=== PATIENT | female | born 1965 | race Caucasian/White ===

== ENCOUNTER 2023-08-25 10:50 | Emergency (ER) | payer SELFPAY ==
[~2023-08-25] VITALS: Ht 165.1 cm; Wt 76.2 kg
[~2023-08-25 10:50] MED LIST: CLARITIN10 MG PO; KENALOG-4040 MG/1 ML IM
[2023-08-25] MEDS ORDERED: ASPIRIN ADULT L81 M1 PO (11:09)
[2023-08-25] MEDS ORDERED: SUDAFED 12HR120 MG PO (11:10)
[2023-08-25 11:33] LABS: BILIRUBIN 2+ (Negative); BLOOD 2+ (Negative); CLARITY Clear (Clear); GLUCOSE Negative (Negative); KETONE 1+ (Negative); LEUKO ESTERASE Trace (Negative); NITRITE Positive (Negative); PH 5.5 (4.5-8.0); SPECIFIC GRAVITY 1.025 (1.001-1.030)
[2023-08-25] MEDS ORDERED: MORPHINE Sulfate 2 MG/ML SYR IV ONE ×2 (11:35→14:00)
[2023-08-25] MEDS ORDERED: Ondansetron Hydrochloride 4 MG/2 ML VIAL IV ONE (11:35)
[2023-08-25] MEDS ORDERED: SODIUM CHLORIDE 0.9% 1,000 ML IV SCH (11:35)
[2023-08-25 11:47] LABS: BACTERIA 3+; COLOR Orange (Yellow); MUCOUS 2+; WBC 0-2 wbc/hpf (0-5)
[2023-08-25] MEDS ORDERED: IOHEXOL 300 MG/ML 100 ML VIAL IV ONE (11:50)
[2023-08-25 12:00] LABS: MEAN CELL VOLUME 89.2 fl (81.0-99.0); MEAN CORPUSCULAR HGB 30.1 pg (27.0-31.0); MEAN CORPUSCULAR HGB CONC 33.7 g/dl (33.0-37.0); MEAN PLATELET VOLUME 9.5 fl (9.6-12.3); PLATELET COUNT AUTOMATED 320 10*3/uL (130-400); RED BLOOD COUNT 4.82 10*6/uL (4.10-5.10); RED CELL DISTRI WIDTH 12.8 % (0-14.5); WHITE BLOOD COUNT 28.9 10*3/uL (4.8-10.8)
[2023-08-25 12:01] LABS: MANUAL DIFF REFLEX YES
[2023-08-25] MEDS ORDERED: Vancomycin Hydrochloride 250 ML IV ONE (12:20)
[2023-08-25] MEDS ORDERED: Cefepime Hydrochloride 2 GM in SODIUM CHLORIDE 0.9% 50 ML IV ONE (12:20)
[2023-08-25 12:25] LABS: PLATELET SUFFICIENCY NORMAL (NORMAL); TOTAL CELLS COUNTED 100 #CELLS
[2023-08-25 12:27] LABS: ALKALINE PHOSPHATASE 73 U/L (46-116); BUN 9 mg/dl (9-23); CHLORIDE 98 mmol/L (98-107); LIPASE 24 U/L (12-53); POTASSIUM 3.3 mmol/L (3.4-5.1); SGPT/ALT < 7 U/L (5-49); TOTAL PROTEIN 7.2 gm/dL (6.0-8.0)
[2023-08-25 12:44] LABS: ACT PARTIAL THROMBO TIME 30.8 SECONDS (20.0-32.1)
== END 2023-08-25 17:01 | disposition short-term general hospital (02) ==
LOC: ED 10:50
PROVIDERS: Emergency Medicine; Nurse Practitioner
DX: K36 Other appendicitis (principal); K37 Unspecified appendicitis; A41.9 Sepsis, unspecified organism; R11.0 Nausea; M54.50 Low back pain, unspecified; R50.9 Fever, unspecified; R51.9 Headache, unspecified; Z88.0 Allergy status to penicillin; Z88.8 Allergy status to other drugs, medicaments and biological substances